=== PATIENT | female | born 1995 | race Caucasian/White ===

== ENCOUNTER → 2017-02-28 | Outpatient (CLI) | payer OTHER ==
[2017-02-28 16:43] LABS: URINE APPEARANCE CLEAR (CLEAR); URINE BILIRUBIN NEG (NEG); URINE COLOR DK YELLOW; URINE EPITHELIAL CELL AUTO 20-30 /lpf (0-5); URINE NITRITE NEG (NEG); URINE SPECIFIC GRAVITY 1.027 (1.000-1.030); UROBILINOGEN NEG (NEG)
[2017-02-28 17:06] LABS: MANUAL MICROSCOPIC REQUIRED? NO; REVIEW REQ? NO
[2017-03-04 07:44] LABS: CHLAMYDIA TRACH RNA*** NOT DETECTED (NOT DETECTED); GC (NEIS GONORRHOEAE)RNA** NOT DETECTED (NOT DETECTED)
== END | disposition home or self-care (01) ==
LOC: C.LABSPEC 16:10
PROVIDERS: ATTEND Obstetrics & Gynecology
DX: Z34.81 Encounter for supervision of other normal pregnancy, first trimester (principal)

== ENCOUNTER → 2017-02-28 | Outpatient (CLI) | payer OTHER | END | disposition home or self-care (01) | LOC: C.PAPS 16:35 | PROVIDERS: ATTEND Obstetrics & Gynecology | DX: Z12.4 Encounter for screening for malignant neoplasm of cervix (principal) ==

== ENCOUNTER → 2017-03-08 | Outpatient (CLI) | payer OTHER ==
[2017-03-08 15:40] LABS: BASO % 0.1 %; BASO ABS # 0.01 K/uL (0-0.2); COMPLETE YES; EOS % 0.7 %; HEMATOCRIT 38.2 % (37-47); IG% 0.3 %; LYMPH % 24.7 %; LYMPH ABS # 1.78 K/uL (1.2-3.4); MEAN CORPUSCULAR HEMOGLOBIN 31.8 pg (25-34); MEAN CORPUSCULAR HGB CONC 34.6 g/dl (32-36); MEAN PLATELET VOLUME 9.8 fL (7.4-10.4); MONO % 8.2 %; PLATELET COUNT 264 K/uL (130-400); RED BLOOD COUNT 4.15 M/uL (4.2-5.4); WHITE BLOOD COUNT 7.22 K/uL (4.8-10.8)
== END | disposition home or self-care (01) ==
LOC: C.LAB1850 13:58
PROVIDERS: ATTEND Obstetrics & Gynecology
DX: Z34.81 Encounter for supervision of other normal pregnancy, first trimester (principal)

== ENCOUNTER → 2017-07-09 | Outpatient (CLI) | payer OTHER ==
[~2017-07-09] MED LIST: FOLI1TAB8 PO; MTR600X PO; OXYC-57 PO; PRENTAB26 PO; VALA500T60 PO
[2017-07-09 14:36] LABS: HEMATOCRIT 37.8 % (37-47); HEMOGLOBIN 12.7 g/dL (12.0-16.0)
== END | disposition home or self-care (01) ==
LOC: C.LAB1850 11:32
PROVIDERS: ATTEND Obstetrics & Gynecology
DX: Z34.83 Encounter for supervision of other normal pregnancy, third trimester (principal)

== ENCOUNTER → 2017-09-17 | Outpatient (CLI) | payer OTHER ==
[~2017-09-17] MED LIST changes: -FOLI1TAB8 PO; -MTR600X PO; -OXYC-57 PO
== END | disposition home or self-care (01) ==
LOC: C.LABSPEC 17:30
PROVIDERS: ATTEND Obstetrics & Gynecology
DX: Z34.83 Encounter for supervision of other normal pregnancy, third trimester (principal)

== ENCOUNTER 2017-09-30 05:35 | Inpatient (IN) | payer OTHER ==
--- NOTE | 2017-09-23 10:00 | HISTORY & PHYSICAL EXAMINATION ---
DATE OF ADMISSION: 09/30/2017 PREOPERATIVE DIAGNOSES: 1. Intrauterine at 39 and 3/7 weeks. 2. History of third-degree laceration with repair in her first delivery with requiring of several re-repairs. 3. History of previous section. HISTORY OF PRESENT ILLNESS: Poly is a 22-year-old 3, para 2-0-0-2, with an EDC of 10/04/2017 making her 39 and 3/7 weeks. She presents for repeat section. Her first was complicated by a normal spontaneous vaginal delivery of a 7 pound 13 ounce baby with a third degree laceration with repair. In the interim, she had several repair surgeries of this third degree laceration and subsequently has a very short perineal body. Her second in October of 2015 was a section given concern for her previous third degree with multiple repairs. She presents today for repeat section. The patient's has thus far been uncomplicated. She is Rh negative. PAST OBSTETRICAL AND GYNECOLOGICAL HISTORY: As noted above. She denies history of sexually transmitted diseases. She does have a history of an abnormal Pap smear, which was ASCUS HPV at 14 years old. 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 ALLERGIES: No known drug allergies. MEDICATIONS: vitamins, Valtrex as needed and folic acid. PAST MEDICAL HISTORY: Significant for interstitial cystitis and varicella. She denies thyroid disease, asthma, heart disease, heart murmur, diabetes, kidney or liver problems. SOCIAL HISTORY: The patient denies tobacco, alcohol or drug use. She lives with her spouse and 2 children. PHYSICAL EXAMINATION: GENERAL: This is a well-developed, well-nourished white female in no acute distress. VITAL SIGNS: Blood pressure 130/80, weight 205 pounds. NECK: Supple without thyromegaly or lymphadenopathy. CHEST: Clear to auscultation bilaterally. CARDIOVASCULAR: Regular rate and rhythm without murmurs, gallops or rubs. BACK: Without costovertebral angle tenderness. ABDOMEN: Soft, nontender, nondistended, and gravid. EXTREMITIES: Show trace edema. LABORATORY DATA: O negative, antibody negative, Pap normal, rubella immune, RPR nonreactive, HIV negative, hepatitis B negative, chlamydia and gonorrhea cultures negative, cell free DNA negative, GTT x2 negative, group B strep negative. ASSESSMENT: Poly is a 22-year-old white female 3, para 2-0-0-2, who presents for repeat section first complicated by a third degree laceration with multiple issues including rectovaginal fistula afterwards requiring multiple repairs. Her second delivery was a primary elective section and she now presents for repeat. Additionally, she desires a permanent surgical sterilization. The risks of surgery were discussed with the patient including risks of anesthesia, bleeding requiring transfusion, infection, poor wound healing, damage to surrounding structures including bowel, bladder, vessels, nerves and ureters with need for further surgery, hospitalization or intervention. We also discussed the risks of tubal ligation including the risks of failure with increased risk of ectopic and regret. We discussed the other options for contraception including barriers, hormones, and long-term reversible contraceptive options. The patient is sure she wishes tubal ligation. Consent was reviewed and signed. Surgery planned for 09/30/2017.
[2017-09-23 11:03] LABS: BASO % 0.1 %; BASO ABS # 0.01 K/uL (0-0.2); EOS % 0.7 %; EOS ABS # 0.05 K/uL (0-0.5); HEMATOCRIT 33.5 % (37-47); IG# 0.02 K/uL (0.00-0.02); LYMPH % 20.1 %; LYMPH ABS # 1.38 K/uL (1.2-3.4); MEAN CELL VOLUME 94.6 fL (80-100); MEAN CORPUSCULAR HEMOGLOBIN 31.1 pg (25-34); MEAN CORPUSCULAR HGB CONC 32.8 g/dl (32-36); MONO % 10.5 %; MONO ABS # 0.72 K/uL (0.11-0.59); NEUT % 68.3 %; PLATELET COUNT 266 K/uL (130-400); RED CELL DISTRIBUTION WIDTH CV 14.1 % (11.5-14.5); RED CELL DISTRIBUTION WIDTH SD 48.6 fL (36.4-46.3); WHITE BLOOD COUNT 6.88 K/uL (4.8-10.8)
[2017-09-30] VITALS (14 sets, daily range): BP systolic 108–137; BP diastolic 68–86; PULSE 65–77; TEMP 36.3–36.8; O2SAT 95–100; Ht 165.1 cm; Wt 92.3 kg
[~2017-09-30] VITALS: Ht 165.1 cm; Wt 92.3 kg
[2017-09-30] MEDS ORDERED: CITRIC ACID/SODIUM CITRATE 15 ML UDC PO SCH (06:00)
[2017-09-30] MEDS: LACTATED RINGER'S 1000ML 1,000 ML IV SCH ×2 (06:14→07:07)
[2017-09-30] MEDS ORDERED: FOLI1TAB8 PO (06:27)
[2017-09-30 06:35] LABS: BASO % 0.1 %; BASO ABS # 0.01 K/uL (0-0.2); EOS % 0.8 %; EOS ABS # 0.06 K/uL (0-0.5); HEMATOCRIT 34.9 % (37-47); HEMOGLOBIN 11.5 g/dL (12.0-16.0); IG# 0.03 K/uL (0.00-0.02); LYMPH % 17.4 %; LYMPH ABS # 1.38 K/uL (1.2-3.4); MEAN CELL VOLUME 94.6 fL (80-100); MEAN CORPUSCULAR HEMOGLOBIN 31.2 pg (25-34); MEAN PLATELET VOLUME 9.1 fL (7.4-10.4); MONO % 9.8 %; MONO ABS # 0.78 K/uL (0.11-0.59); NEUT % 71.5 %; NEUT ABS # 5.67 K/uL (1.4-6.5); PLATELET COUNT 299 K/uL (130-400); RED CELL DISTRIBUTION WIDTH CV 14.3 % (11.5-14.5); RED CELL DISTRIBUTION WIDTH SD 49.3 fL (36.4-46.3); WHITE BLOOD COUNT 7.93 K/uL (4.8-10.8)
[2017-09-30] MEDS ORDERED: CEFAZOLIN IV 2,000 MG in SYRINGE 0 ML IV SCH (07:00)
--- NOTE | 2017-09-30 07:16 | History & Physical Bridge Note ---
H&P Re-Evaluation Bridge Note: I have examined the patient, reviewed the History & Physical and in the interval since the performance of the History & Physical I have noted the following changes of clinical significance: No changes noted
[2017-09-30] MEDS ORDERED: MoRPHine SULFATE PF 1 MG/ML 10 ML AMP/VIAL ONE (07:25)
[2017-09-30] MEDS ORDERED: FENTANYL CITRATE INJ 50 MCG/1 ML 2 ML VIAL ONE (07:25)
[2017-09-30] MEDS ORDERED: OXYTOCIN INJ 10 UNITS/ML VIAL ONE ×2 (07:25→08:03)
[2017-09-30] MEDS ORDERED: PHENYLEPHRINE HCL INJ 10 MG/ML VIAL ONE (07:49)
[2017-09-30] MEDS ORDERED: NALOXONE HCL INJ 1 MG in SODIUM CHLORIDE 0.9% 1000ML 1,000 ML IV PRN (08:08)
[2017-09-30] MEDS ORDERED: LACTATED RINGER'S 1000ML 500 ML IV PRN (08:08)
[2017-09-30] MEDS ORDERED: NALOXONE HCL INJ 0.08 MG in SYRINGE 1.8 ML IV PRN (08:08)
[2017-09-30] MEDS ORDERED: SODIUM CHLORIDE 0.9% 1000ML 1,000 ML IV PRN (08:08)
[2017-09-30] MEDS ORDERED: NO NARCOTICS OR SEDATIVES SCH (08:15)
[2017-09-30] MEDS ORDERED: NALOXONE HCL 0.4 MG/1 ML VIAL/CARP IV PRN (08:15)
[2017-09-30] MEDS ORDERED: NALBUPHINE HCL INJ 10 MG/ML AMP IV PRN (08:15)
[2017-09-30] MEDS ORDERED: MEPERIDINE HCL 25 MG/ML CARP IV PRN (08:15)
[2017-09-30] MEDS ORDERED: EpHEDrine SULFATE INJ 50 MG/ML AMP IV PRN (08:15)
[2017-09-30] MEDS ORDERED: MoRPHine SULFATE 2 MG/ML CARP IV PRN (08:15)
[2017-09-30] MEDS ORDERED: MoRPHine SULFATE PF 1 MG/ML 10 ML AMP/VIAL EPI PRN (08:15)
[2017-09-30] MEDS ORDERED: DiphenhydrAMINE HCL 50 MG/ML VIAL IV PRN (08:15)
[2017-09-30] MEDS ORDERED: ONDANSETRON INJ 2 MG/ML 2 ML VIAL IV PRN (08:15)
[2017-09-30] MEDS ORDERED: DIPHTHERIA/TETANUS/PERTUSSIS 0.5 ML SYR/VIAL IM. ONE (08:30)
[2017-09-30] MEDS ORDERED: DC PCA PRN (08:30)
[2017-09-30] MEDS ORDERED: LANOLIN OINT EXT PRN (08:30)
--- NOTE | 2017-09-30 08:36 | [facility] Post Operative Brief Note ---
Immediate Operative Summary Operative Date Sep 30, 2017. Pre-Operative Diagnosis 1. IUP at 39 3/7 weeks 2. History of 3rd degree laceration with repair in first delivery requiring several re-repairs. 3. History of prevoius ceasarean section. Post-Operative Diagnosis same Procedure(s) Performed Repeat lower uterine transverse caesarean section with the of a live male child at 0759 and bilateral tubal ligation. Surgeon Dr. Mena Piper Carpet Inspector Surgeon(s) Dr. Viry Doshi Estimated Blood Loss 650 ml Findings Consistent with Post-Op Diagnosis Specimens A: Placenta- hold B: Cord Blood C: Portion of Right fallopian tube D: Portion of Left fallopian tube Drains None 2200cc Anesthesia Type Spinal Complication(s) none Disposition Accompanied Pt To Recover: no Disposition: L&D
--- NOTE | 2017-09-30 09:18 | Anesthesiology Progress Note ---
Anesthesia Post Op Note Date & Time Sep 30, 2017 at 09:17 Notes Mental Status: alert / awake / arousable, participated in evaluation Pt Amnestic to Procedure: Yes Nausea / Vomiting: adequately controlled Pain: adequately controlled Airway Patency, RR, SpO2: stable & adequate BP & HR: stable & adequate Hydration State: stable & adequate Neuraxial Anesthesia: was administered, sensory block is resolving Anesthetic Complications: no major complications apparent
[2017-09-30] MEDS: OXYTOCIN INJ 20 UNITS in LACTATED RINGER'S 1000ML 1,000 ML IV SCH ×2 (09:28→16:53)
--- NOTE | 2017-09-30 10:56 | OPERATIVE REPORT ---
DATE OF OPERATION: 09/30/2017 PREOPERATIVE DIAGNOSES: 1. Intrauterine at 39+ weeks. 2. History of previous section. 3. History of complicated third degree laceration with multiple repairs and fistula. 4. Desires permanent surgical sterilization. POSTOPERATIVE DIAGNOSES: Same. PROCEDURES: Repeat lower transverse section and bilateral modified Dereje tubal ligation. SURGEON: Mena Piper MD ELDERLY COMPANION: Viry Doshi, PGY-1. ANESTHESIA: Spinal. ESTIMATED BLOOD LOSS: 650 mL. FLUIDS: 2200 mL. URINE OUTPUT: 500 plus mL of clear yellow urine draining from the bladder at the end of the procedure. INDICATIONS: Poly is a 3, para 2-0-0-2 with an intrauterine at 39 weeks, who presents for repeat section. She has had a previous section. Her first delivery was complicated by third degree laceration with multiple issues, requiring multiple repairs and a history of fistula. FINDINGS: Viable male in cephalic presentation. No nuchal cord. Apgars pending. Normal uterus, tubes, and ovaries were noted bilaterally. COMPLICATIONS: None. DRAINS: Zhao. DISPOSITION: To recovery room in stable condition. DESCRIPTION OF PROCEDURE: The patient was taken to the operating room, where she was identified verbally and by bracelet. She was placed in dorsal spine position, where general anesthesia was induced without difficulty. She was then placed in dorsal spine position, where a Zhao catheter was placed sterilely. She was placed with a leftward tilt. She was prepped and draped in normal sterile fashion. Timeout was held, identifying correct patient, procedure and positioning. A Pfannenstiel skin incision was made with a knife over the previous Pfannenstiel skin incision and taken to the underlying layer of fascia using the knife and Bovie electrocautery. The fascia was incised in the midline using a knife and taken out laterally with scissors. The superior edge of the fascial incision was grasped, elevated and the underlying layer of rectus muscle was taken off bluntly and with scissors. In a similar fashion, the inferior edge of the fascial incision was grasped, elevated and the underlying layer of rectus muscle was taken off bluntly and with scissors. The muscles were bluntly and sharply in the midline. The peritoneum was entered bluntly and was taken superiorly and inferiorly with good visualization of the bladder. The incision was stretched. A bladder blade was placed. The vesicouterine peritoneum was identified and entered sharply with scissors and taken out laterally with scissors. The bladder flap was then created digitally. The bladder blade was replaced. Hysterotomy incision was scored with a knife. The uterus was entered with a snap. Clear fluid was noted on amniotomy. The incision was stretched with the fastener sewing machine operator's fingers. The fastener sewing machine operator's hand was placed into the uterus and the head was delivered. There was no nuchal cord. The nose and mouth were bulb suctioned. The rest of the infant was then delivered without difficulty. The nose and mouth were again bulb suctioned. The cord was clamped and cut and the was taken over to the awaiting pediatricians for drying and attention. Cord blood and segment were obtained. Placenta was manually extracted. The uterus was cleared of all clot and debris with moistened laparotomy sponges. The hysterotomy incision was repaired in 2 layers, the first in a running locked layer of 0 Vicryl and the second in an imbricating layer. Three [id number] sutures of 0 Vicryl were needed for hemostasis. Attention was then turned to the tubes, where first on the right and then on the left in a very similar fashion, the tube was grasped with a [place]. It was sutured x2 with a 2-0 plain gut suture and the tube was removed with scissors. The base was treated with cautery. This was performed similarly on the left. The hysterotomy incision was again inspected and found to be hemostatic. The uterus was reanteriorized. The tubal segments were inspected and found to be hemostatic and intact. The hysterotomy incision was again inspected and found to be hemostatic. The muscles were reapproximated in midline with several interrupted sutures of 0 Vicryl. The fascia was repaired with 0 Vicryl starting at the corners and meeting in the midline. Subcuticular tissue was irrigated with normal saline. Bleeding was attended to with Bovie electrocautery and the skin was closed with subcuticular stitch of 4-0 Vicryl. All sponge, lap and needle counts were correct x2. The patient tolerated the procedure well and was taken to recovery room in stable condition. I attest to the content of the Intraoperative Record and any orders documented therein. Any exception s are noted below.
[2017-09-30] MEDS: SIMETHICONE 80 MG CHEW PO SCH ×3 (12:06→19:48)
[2017-09-30] MEDS: KETOROLAC TROMETHAMINE 30 MG/ML VIAL IV. PRN ×2 (12:25→18:12)
[2017-09-30] MEDS: DOCUSATE SODIUM 100 MG CAP PO SCH (19:48)
[2017-10-01 00:30] VITALS: BP 117/66; PULSE 84; TEMP 37.1; O2SAT 98
[2017-10-01] MEDS ORDERED: ONDANSETRON INJ 2 MG/ML 2 ML VIAL IV PRN (01:30)
[2017-10-01] MEDS ORDERED: PROMETHAZINE HCL INJ 25 MG in SODIUM CHLORIDE 0.9% 50ML 50 ML IV PRN (01:30)
[2017-10-01] MEDS ORDERED: DC INTRASPINAL MORPHINE ONE (01:30)
[2017-10-01] MEDS ORDERED: DiphenhydrAMINE HCL 50 MG/ML VIAL IV PRN (01:30)
[2017-10-01] MEDS ORDERED: OXYCODONE/ACETAMINOPHEN 5-325 TAB PO PRN (01:30)
[2017-10-01] MEDS: OXYCODONE/ACETAMINOPHEN 5-325 TAB PO PRN (01:41)
[2017-10-01 04:15] VITALS: BP 116/76; PULSE 102; TEMP 37
[2017-10-01] MEDS: IBUPROFEN 600 MG TAB PO PRN ×5 (05:43→22:09)
[2017-10-01 06:48] LABS: BASO % 0.2 %; BASO ABS # 0.02 K/uL (0-0.2); EOS ABS # 0.09 K/uL (0-0.5); HEMATOCRIT 29.4 % (37-47); HEMOGLOBIN 9.9 g/dL (12.0-16.0); IG# 0.02 K/uL (0.00-0.02); LYMPH % 16.1 %; LYMPH ABS # 1.44 K/uL (1.2-3.4); MEAN CELL VOLUME 93.3 fL (80-100); MEAN CORPUSCULAR HEMOGLOBIN 31.4 pg (25-34); MEAN CORPUSCULAR HGB CONC 33.7 g/dl (32-36); MEAN PLATELET VOLUME 8.8 fL (7.4-10.4); MONO % 9.4 %; MONO ABS # 0.84 K/uL (0.11-0.59); NEUT % 73.1 %; NEUT ABS # 6.55 K/uL (1.4-6.5); PLATELET COUNT 228 K/uL (130-400); RED CELL DISTRIBUTION WIDTH CV 14.3 % (11.5-14.5); RED CELL DISTRIBUTION WIDTH SD 48.3 fL (36.4-46.3); WHITE BLOOD COUNT 8.96 K/uL (4.8-10.8)
--- NOTE | 2017-10-01 07:33 | Progress Note ---
Subjective Oct 01, 2017. Subjective conversation w/ patient, physical exam Ambulation: ambulating normally Voiding: no voiding problems Passing Gas: Yes Diet Tolerance: Regular Diet Lochia: Moderate Feeding Type: Breast Feeding Pain: moderate, well controlled with meds Comment: seen and assessed at bedside; no acute events overnight Review of Systems Constitutional: No fever, No chills Respiratory: No cough, No shortness of breath Cardiac: No chest pain, No edema Abdomen: No nausea, No vomiting no headaches or calf pain Objective Vital Signs Date Time Temp Pulse Resp B/P (MAP) Pulse Ox O2 Delivery O2 Flow Rate FiO2 10/01/17 04:15 37.0 102 18 116/76 (89) Room Air 10/01/17 00:30 98 Room Air 10/01/17 00:30 18 98 10/01/17 00:30 37.1 84 18 117/66 (83) 98 Room Air 09/30/17 22:30 16 97 09/30/17 21:50 14 95 09/30/17 20:30 36.8 65 16 109/68 (82) 98 Room Air 09/30/17 20:30 16 98 09/30/17 19:30 16 98 09/30/17 18:30 20 100 09/30/17 17:30 18 100 09/30/17 16:30 36.8 75 16 110/71 (84) 98 Room Air 09/30/17 16:30 16 98 09/30/17 16:30 98 Room Air 09/30/17 15:30 16 100 09/30/17 14:30 18 100 09/30/17 14:00 16 98 09/30/17 13:00 14 100 09/30/17 13:00 36.3 73 14 113/74 (87) 100 Room Air 09/30/17 12:16 77 14 137/86 (103) 100 09/30/17 12:00 16 100 09/30/17 11:00 Room Air 09/30/17 11:00 99 Room Air 09/30/17 11:00 18 99 09/30/17 11:00 36.5 70 18 108/69 (82) 99 Room Air Physical Exam General Appearance: WELL-APPEARING, NO APPARENT DISTRESS Respiratory/Chest: chest non-tender, lungs clear, normal breath sounds Cardiovascular: regular rate, rhythm, no edema, no murmur Abdomen: normal bowel sounds, non tender, soft Fundus: Firm, Non-Tender, Relation to Umbilicus (2-3 below) Incision Description: Clean, Dry & Intact Extremities: normal range of motion, non-tender, normal inspection, no pedal edema, no calf tenderness Laboratory Results Last 24 Hours Test 10/01/17 06:33 White Blood Count 8.96 K/uL Red Blood Count 3.15 M/uL Hemoglobin 9.9 g/dL Hematocrit 29.4 % Mean Corpuscular Volume 93.3 fL Mean Corpuscular Hemoglobin 31.4 pg Mean Corpuscular Hemoglobin Concent 33.7 g/dl Platelet Count 228 K/uL Mean Platelet Volume 8.8 fL Neutrophils (%) (Auto) 73.1 % Lymphocytes (%) (Auto) 16.1 % Monocytes (%) (Auto) 9.4 % Eosinophils (%) (Auto) 1.0 % Basophils (%) (Auto) 0.2 % Neutrophils # (Auto) 6.55 K/uL Lymphocytes # (Auto) 1.44 K/uL Monocytes # (Auto) 0.84 K/uL Eosinophils # (Auto) 0.09 K/uL Basophils # (Auto) 0.02 K/uL RDW Standard Deviation 48.3 fL RDW Coefficient of Variation 14.3 % Immature Granulocyte % (Auto) 0.2 % Immature Granulocyte # (Auto) 0.02 K/uL Medications Current Inpatient Medications Medications (Trade) Dose Ordered Sig/Tripp Route Start Time Stop Time Status Last Admin Dose Admin Lactated Ringer's 1,000 ml @ 1,000 mls/hr Q1H IV 09/30/17 05:40 10/30/17 05:39 09/30/17 07:07 1,000 MLS/HR Oxycodone/ Acetaminophen (Percocet 5-325mg Tab) 1 tab Q4H PRN PO 10/01/17 01:30 10/15/17 01:29 10/01/17 01:41 1 TAB Oxycodone/ Acetaminophen (Percocet 5-325mg Tab) 2 tab Q4H PRN PO 10/01/17 01:30 10/15/17 01:29 10/01/17 07:10 2 TAB Ibuprofen (Motrin Tab) 600 mg Q4H PRN PO 09/30/17 08:30 10/30/17 08:29 10/01/17 05:43 600 MG Promethazine HCl 25 mg/Sodium Chloride 51 ml @ 204 mls/hr Q4H PRN IV 10/01/17 01:30 10/31/17 01:29 Ondansetron HCl (Zofran Inj) 4 mg Q4H PRN IV 10/01/17 01:30 10/31/17 01:29 Prenat Multivit/ [place]/Iron/Folic Ac ( Vitamin Tab) 1 tab DAILY PO 10/01/17 08:00 10/31/17 07:59 Docusate Sodium (coLACE CAP) 100 mg BID PO 09/30/17 20:00 10/30/17 19:59 09/30/17 19:48 100 MG Ferrous Sulfate (Feosol Tab) 325 mg DAILY PO 10/01/17 08:00 10/31/17 07:59 Lanolin (Lanolin Oint) PRN PRN EXT 09/30/17 08:30 10/30/17 08:29 Simethicone (Mylicon Chew Tab) 80 mg QID PO 09/30/17 12:00 10/30/17 12:59 09/30/17 19:48 80 MG Diphenhydramine HCl (Benadryl Cap) 25 mg QID PRN PO 10/01/17 01:30 10/31/17 01:29 Diphenhydramine HCl (Benadryl Inj) 25 mg QID PRN IV 10/01/17 01:30 10/31/17 01:29 Assessment and Plan Post-Op Day#: 1 Continue Routine Care: 22 yo POD 1 s/p CS Blood type Oneg, baby Rh neg doing well clinically continue routine care: ambulation, breast feeding encouragement Resident Physician Supervision Note: I interviewed and examined the patient. Discussed with Dr. Baires and agree with findings and plan as documented in the note. Any exceptions or clarifications are listed here: [None] Documented By: Sterling Sadler Resident Tracking Resident Involvement: Resident Care Provided Care Provided: OB Delivery
[2017-10-01 07:40] VITALS: BP 106/67; PULSE 64; TEMP 36.7; O2SAT 97
[2017-10-01] MEDS: SIMETHICONE 80 MG CHEW PO SCH ×4 (08:14→20:14)
[2017-10-01] MEDS: FERROUS SULFATE 325 MG TAB PO SCH (08:15)
[2017-10-01] MEDS: PRENATAL VITAMIN TAB PO SCH (08:15)
[2017-10-01] MEDS: DOCUSATE SODIUM 100 MG CAP PO SCH ×2 (08:16→20:13)
[2017-10-01 12:40] VITALS: BP 125/73; PULSE 82; TEMP 36.6; O2SAT 98
[2017-10-01 16:15] VITALS: BP 108/69; PULSE 88; TEMP 36.9; O2SAT 98
[2017-10-02 00:35] VITALS: BP 115/73; PULSE 71; TEMP 36.8; O2SAT 98
[2017-10-02] MEDS: OXYCODONE/ACETAMINOPHEN 5-325 TAB PO PRN ×2 (00:41→05:20)
[2017-10-02] MEDS ORDERED: OXYC-57 PO (01:15)
[2017-10-02] MEDS ORDERED: MTR600X PO (01:15)
--- NOTE | 2017-10-02 01:16 | Discharge Instructions ---
Discharge Instructions Date of Service Oct 02, 2017. Admission Reason for Admission: Previous Section, Desires Sterilization Discharge Discharge Diagnosis / Problem: after delivery Discharge Goals Goal(s): Routine recovery after Medications Continue Dispensed Medications: supercream, dermaplast, tucks, lansinoh Activity Recommendations Activity Limitations: as noted below . Instructions / Follow-Up Instructions / Follow-Up ACTIVITY RECOMMENDATIONS: * Gradual return to full activity over the next 2-3 weeks. * No lifting - nothing heavier than baby over the next 2-3 weeks. * Do not engage in vigorous exercise, sexual activity or sports until cleared by your physician. * Do not drive or operate any motorized equipment until cleared by your physician. * You may shower/bathe daily. MEDICATIONS: For discomfort or pain, you may use Acetaminophen (Tylenol), Ibuprofen (Advil), or Naproxen (Aleve) following the package directions. For constipation you may use Colace following the package directions. BREAST CARE: If you are not breast feeding: * Wear a supportive bra 24 hours a day for one to two weeks. * Avoid stimulating your breasts and nipples as much as possible during the first few weeks after delivery. * When taking a shower, have the warm water hit your back, not breasts. * When your breasts feel full, apply ice packs. Usually three to four times a day helps ease the discomfort. * Take a mild pain medication (Tylenol / Motrin) when you are uncomfortable. If breast feeding: * Use breast milk to lubricate nipples. Lansinoh cream may be used for sore nipples. You do not need to remove cream prior to breast feeding. If using a different brand of cream, check the label for directions regarding removal of cream prior to nursing. * Wear a supportive bra. * If having problems with breasts or breast feeding, call a data processing consultant or your health care provider. SPECIAL CARE INSTRUCTIONS: When you are discharged from the hospital, it is important for you to follow the instructions listed below: * During the first week at home, you should be able to care for yourself and your baby. In addition, the usual light household activities are encouraged. * Limit your activities to the way you feel. Do not try to clean the house or move furniture. Be sensible. * If you actively engage in sports and have done so up until the time of your delivery, you may resume these activities as soon as you feel able. This may take up to one month or even longer. Use good judgment. * Continue to take your vitamins for at least six weeks after the of your baby. * Your diet need not be limited unless you were on a special diet before your delivery. Breast-feeding mothers need around 2500 calories per day and at least 64-80 ounces of fluid per day (8 to 10 glasses). * You should eat foods from the four major food groups. Crash diets or fad diets are to be avoided. Eating lean meats, fresh fruits and vegetables, low-fat dairy products, high fiber foods and a regular exercise program, will help you get back to your pre- weight without putting your health at risk. * Constipation is sometimes a problem after delivery. Take a mild laxative as needed. If breast feeding, Milk of Magnesia is acceptable to use. You may use a suppository or Fleets enema. * A daily shower or tub bath is suggested. Wash incision daily with warm soapy water and pat dry. It doesn't need to be covered unless drainage is present. * A bloody vaginal discharge will usually continue until around four weeks . A small amount of bleeding may continue for as long as six weeks. Vaginal discharge changes from the bright red bleeding after delivery to pink then brownish and finally yellowish-pink before becoming white and disappearing. * Bleeding may increase with activity. Your first period may come in 4-8 weeks. If you are breast feeding, your period may be delayed even longer. * [place] (sex) can begin whenever both you and your partner feel comfortable and do not have any form of genital infection. It is recommended that you wait at least six weeks for internal and external healing to occur. If you have questions, please talk to your health care practitioner. A condom should be used to prevent infection and . * Foreplay, gentle intercourse and lubrication is very important the first several times to prevent pain. A water-based lubricant such as K-Y jelly or Astroglide may be used. * If you have RH negative blood and your baby is RH positive, you will receive RHOGAM by injection prior to discharge. The nurse will give you a card to keep with you that has the date and place that you received RHOGAM after delivery. * During your care, you had a Rubella screen done to check for the presence of rubella antibodies in your blood. If your test was negative, you will receive a Rubella vaccine prior to discharge. This vaccine may cause a fever, soreness at the injection site and flu-like symptoms. If these symptoms persist, notify your health care practitioner. is not advised for one month after a Rubella vaccine. * Verbalizes understanding of car seat law as reviewed with patient nursing. * Car Seat hand-out given and reviewed with patient by nursing. * Shaken baby information reviewed with patient by nursing. Call you doctor if: * Heavy bleeding (saturating several pads an hour) or passing clots the size of your fist. * A fever >101 degrees F (38.3 degrees C) on two occasions four hours apart and /or chills. * Unusual pain in the pelvic or vaginal areas. * Call the doctor for any increased redness, drainage or swelling around the incision and any pain unrelieved by prescribed pain medication. * "Baby Blues" lasting longer than two weeks. If you have any questions or concerns, call your health care practitioner at . FOLLOW UP VISIT: * Please call the office at to schedule a 6 week examination. It is important you keep this appointment. It is important for you to make arrangements for either yearly or twice yearly check-ups thereafter. Current Hospital Diet Patient's current hospital diet: Regular OB Diet Discharge Diet Recommended Diet: Regular Diet Procedures Procedures Performed: Repeat lower uterine transverse caesarean section with the of a live male child at 0759 and bilateral tubal ligation. Pending Studies Studies pending at discharge: no Medical Emergencies . Who to Call and When: Medical Emergencies: If at any time you feel your situation is an emergency, please call [phone] immediately. . Non-Emergent Contact Non-Emergency issues call your: [employer] . . "Provider Documentation" section prepared by Blanca Villavicencio. . [place] Drug Monitoring Program Search Results: patient reviewed within database, no issues identified
--- NOTE | 2017-10-02 06:52 | Progress Note ---
Subjective Oct 02, 2017. Subjective conversation w/ patient, physical exam Ambulation: ambulating normally Voiding: no voiding problems Passing Gas: Yes Diet Tolerance: Regular Diet Lochia: Small Feeding Type: Breast Feeding Pain: well controlled, none at rest Comment: seen and assessed at bedside; no acute events overnight Review of Systems Constitutional: No fever, No chills Respiratory: No cough, No shortness of breath Cardiac: No chest pain, No edema Abdomen: No nausea, No vomiting no headaches or calf pain Objective Vital Signs Date Time Temp Pulse Resp B/P (MAP) Pulse Ox O2 Delivery O2 Flow Rate FiO2 10/02/17 00:35 98 Room Air 10/02/17 00:35 36.8 71 16 115/73 (87) 98 Room Air 10/01/17 16:15 Room Air 10/01/17 16:15 36.9 88 18 108/69 (82) 98 Room Air 10/01/17 12:40 Room Air 10/01/17 12:40 36.6 82 18 125/73 (90) 98 Room Air 10/01/17 07:40 36.7 64 18 106/67 (80) 97 Room Air Physical Exam General Appearance: WELL-APPEARING, NO APPARENT DISTRESS Respiratory/Chest: chest non-tender, lungs clear, normal breath sounds Cardiovascular: regular rate, rhythm, no edema, no murmur Abdomen: normal bowel sounds Fundus: Firm, Non-Tender, Relation to Umbilicus (2-3 below) Incision Description: Clean, Dry & Intact Extremities: normal range of motion, non-tender, normal inspection, no pedal edema, no calf tenderness Laboratory Results Last 24 Hours Test 10/02/17 06:00 Medications Current Inpatient Medications Medications (Trade) Dose Ordered Sig/Tripp Route Start Time Stop Time Status Last Admin Dose Admin Lactated Ringer's 1,000 ml @ 1,000 mls/hr Q1H IV 09/30/17 05:40 10/30/17 05:39 09/30/17 07:07 1,000 MLS/HR Oxycodone/ Acetaminophen (Percocet 5-325mg Tab) 1 tab Q4H PRN PO 10/01/17 01:30 10/15/17 01:29 10/02/17 05:20 1 TAB Oxycodone/ Acetaminophen (Percocet 5-325mg Tab) 2 tab Q4H PRN PO 10/01/17 01:30 10/15/17 01:29 10/01/17 07:10 2 TAB Ibuprofen (Motrin Tab) 600 mg Q4H PRN PO 09/30/17 08:30 10/30/17 08:29 10/01/17 22:09 600 MG Promethazine HCl 25 mg/Sodium Chloride 51 ml @ 204 mls/hr Q4H PRN IV 10/01/17 01:30 10/31/17 01:29 Ondansetron HCl (Zofran Inj) 4 mg Q4H PRN IV 10/01/17 01:30 10/31/17 01:29 Prenat Multivit/ Hart/Iron/Folic Ac ( Vitamin Tab) 1 tab DAILY PO 10/01/17 08:00 10/31/17 07:59 10/01/17 08:15 1 TAB Docusate Sodium (coLACE CAP) 100 mg BID PO 09/30/17 20:00 10/30/17 19:59 10/01/17 20:13 100 MG Ferrous Sulfate (Feosol Tab) 325 mg DAILY PO 10/01/17 08:00 10/31/17 07:59 10/01/17 08:15 325 MG Lanolin (Lanolin Oint) PRN PRN EXT 09/30/17 08:30 10/30/17 08:29 Simethicone (Mylicon Chew Tab) 80 mg QID PO 09/30/17 12:00 10/30/17 12:59 10/01/17 20:14 80 MG Diphenhydramine HCl (Benadryl Cap) 25 mg QID PRN PO 10/01/17 01:30 10/31/17 01:29 Diphenhydramine HCl (Benadryl Inj) 25 mg QID PRN IV 10/01/17 01:30 10/31/17 01:29 Assessment and Plan Post-Op Day#: 2 Continue Routine Care: 22 yo POD 2 s/p CS Doing well, continue routine care (ambulation, breast feeding, pain control) Home today Discharge instructions reviewed Resident Physician Supervision Note: I was present with Dr. Doshi during the history and exam. I discussed the case with the resident and agree with the findings and plan as documented in the note. Any exceptions or clarifications are listed here: doing well. more sore with this c/s than prior but pain meds helping. wants to go home later today. instructions reviewed. f/u 6 wks pp check, incision c/d/i with rita. Documented By: Blanca Villavicencio Resident Tracking Resident Involvement: Resident Care Provided Care Provided: OB Delivery
[2017-10-02 07:08] LABS: HEMATOCRIT 28.1 % (37-47); HEMOGLOBIN 9.2 g/dL (12.0-16.0)
[2017-10-02 07:45] VITALS: BP 108/72; PULSE 65; TEMP 36.7; O2SAT 97
[2017-10-02] MEDS: PRENATAL VITAMIN TAB PO SCH (07:59)
[2017-10-02] MEDS: DOCUSATE SODIUM 100 MG CAP PO SCH (07:59)
[2017-10-02] MEDS: FERROUS SULFATE 325 MG TAB PO SCH (07:59)
[2017-10-02] MEDS: IBUPROFEN 600 MG TAB PO PRN ×2 (07:59→11:50)
[2017-10-02] MEDS: SIMETHICONE 80 MG CHEW PO SCH ×2 (07:59→11:47)
--- NOTE | 2017-10-02 10:39 | DISCHARGE SUMMARY ---
ADMISSION DIAGNOSES: 1. Intrauterine at 39 and 3/7 weeks. 2. History of third-degree laceration with multiple repairs after her first delivery. 3. History of previous section. 4. Desires for permanent surgical sterilization. DISCHARGE DIAGNOSES: Same. PROCEDURES: Repeat lower transverse section and bilateral modified Dereje tubal ligation. HISTORY OF PRESENT ILLNESS: Poly is a 22-year-old 3, para 2-0-0-2 with an EDC of 10/04/2017, making her 39 and 3/7 weeks. She presents for repeat section. Her first was complicated by normal spontaneous vaginal delivery of a 7 pound 13 ounce baby with a third degree laceration with repair. 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 Her second in October of 2015 was a section giving concern for her previous 3rd degree laceration with multiple repairs. She presents today for repeat section. The patient's thus far has been uncomplicated. She is Rh negative. For the rest patient's detailed history and physical, please see her dictated history and physical. ASSESSMENT: Poly is a 22-year-old white female 3, para 2-0-0-2, who presents for repeat section and tubal ligation. HOSPITAL COURSE: The patient was admitted and underwent a repeat lower transverse section and a bilateral modified Dereje tubal ligation without difficulty. Estimated blood loss was 650 mL. FINDINGS: Viable male infant in cephalic presentation. No nuchal cord. Clear fluid. Normal uterus, tubes, and ovaries were noted bilaterally. The patient's hospital course was uncomplicated. She tolerated a regular diet, voided after the removal of her Zhao catheter, had her pain well controlled on oral pain medications and ambulated without difficulty. Her discharge H&H was 9.2 and 28.1. She was discharged home on postoperative day #2 with oral pain meds to return in 6 weeks for a postoperative evaluation.
[2017-10-02 14:25] VITALS: BP_DIAS 72; PULSE 65; TEMP 36.7
== END 2017-10-02 14:50 | disposition home or self-care (01) | DRG 766 ==
LOC: C.LD 05:35 → EDSTATUS 07:30 → C.OBG 11:02
PROVIDERS: ADMIT Obstetrics & Gynecology; ATTEND Obstetrics & Gynecology
PROC: 0UB70ZZ Excision of Bilateral Fallopian Tubes, Open Approach (ICD-10-PCS; principal; 2017-09-30 07:30)
PROC: 10D00Z1 Extraction of Products of Conception, Low, Open Approach (ICD-10-PCS; principal; 2017-09-30 07:30)
DX: O34.211 Maternal care for low transverse scar from previous cesarean delivery (principal); O34.83 Maternal care for other abnormalities of pelvic organs, third trimester; Z30.2 Encounter for sterilization; Z87.59 Personal history of other complications of pregnancy, childbirth and the puerperium; Z3A.39 39 weeks gestation of pregnancy; Z37.0 Single live birth